=== PATIENT | female | born 1990 | race Caucasian/White ===

== ENCOUNTER 2023-10-27 17:39 | Emergency (ER) | payer BC ==
[~2023-10-27] VITALS: Ht 170.2 cm; Wt 65.9 kg
[2023-10-27 17:49] VITALS: BP 95/68; PULSE 90; RESP 18; TEMP 95.3; O2SAT 100
== END 2023-10-27 18:11 ==
LOC: ER 17:39
DX: Z04.1 Encounter for examination and observation following transport accident (principal); F10.129 Alcohol abuse with intoxication, unspecified; F41.0 Panic disorder [episodic paroxysmal anxiety]; V89.2XXA Person injured in unspecified motor-vehicle accident, traffic, initial encounter; Y93.89 Activity, other specified; Y92.89 Other specified places as the place of occurrence of the external cause; Y99.8 Other external cause status; Y90.9 Presence of alcohol in blood, level not specified
CPT/HCPCS: 99283